=== PATIENT | male | born 1950 | race American Indian/Alaskan Native ===

== ENCOUNTER 2021-11-23 00:37 | Emergency (ER) | payer MEDICARE ==
[2021-11-23] MEDS ORDERED: MORPHINE 4 MG/1 ML INJ IV STA (02:56)
[2021-11-23] MEDS ORDERED: SODIUM CHLORIDE 0.9% 1000 ML 1,000 ML IV ONE (02:56)
[2021-11-23] MEDS ORDERED: ONDANSETRON 4 MG/2 ML INJ IV STA (02:56)
[2021-11-23 03:47] LABS: Basophils # (Auto) 0.1 K/mm3 (0.0-0.1); Basophils % (Auto) 0.9 % (0.0-1.8); Eosinophils # (Auto) 0.1 K/mm3 (0.0-0.4); Eosinophils % (Auto) 1.5 % (0.0-4.3); Hematocrit 29.1 % (35.5-45.6); Hemoglobin 9.3 gm/dl (11.8-15.2); Lymphocytes # (Auto) 0.9 K/mm3 (1.2-5.4); Lymphocytes % (Auto) 12.1 % (13.4-35.0); Mean Corpuscular HGB Conc 32 % (32-34); Mean Corpuscular Volume 85 fl (84-94); Monocytes # (Auto) 0.5 K/mm3 (0.0-0.8); Monocytes % (Auto) 6.5 % (0.0-7.3); Platelet Count 372 K/mm3 (140-440); Red Blood Count 3.44 M/mm3 (3.65-5.03); Red Cell Distribution Width 14.6 % (13.2-15.2)
[2021-11-23 03:57] LABS: Albumin 3.7 g/dL (3.9-5); Calcium 8.7 mg/dL (8.4-10.2)
[2021-11-23] MEDS ORDERED: HYDROmorphone 1 MG/1 ML INJ IV ONE ×3 (04:42→08:42)
[2021-11-23 04:46] LABS: Bilirubin,Urine Negative (Negative); Blood,Urine Negative (Negative); Color,Urine Straw (Yellow); Urobilinogen,Urine < 2.0 mg/dL (<2.0)
--- NOTE | 2021-11-23 04:46 | Emergency Department Report ---
Blank Doc - Documentation Documentation: Patient is 71 years old male with history of hypertension and enlarged prostate. Patient presented to the ER complaining of lower back pain. Patient stated that he was admitted to [facility] 1 week ago and they found that he has an enlarged prostate and asked him to follow-up with urologist. Patient received morphine 4 mg in triage area and when I was doing my medical screening patient stated that he still hurting so I wrote for Dilaudid 1mg. I order CT abdomen and pelvis for the coming physician to follow-up on.
[2021-11-23 04:50] LABS: Mucus,Urine FEW /HPF
--- NOTE | 2021-11-23 05:45 | Cat Scan Report ---
CT ABDOMEN AND PELVIS WITHOUT CONTRAST INDICATION / CLINICAL INFORMATION: ABDOMINAL PAIN. TECHNIQUE: Axial CT images were obtained through the abdomen and pelvis without IV contrast. All CT scans at this location are performed using CT dose reduction for ALARA by means of automated exposure control. COMPARISON: CT of the abdomen and pelvis 02/28/2013. FINDINGS: LOWER CHEST: Dependent right pleural effusion with associated passive atelectasis of the right lower lobe. Expansile lesion of the posterior lateral right eighth rib with sclerotic expansile partially i fredy lesion of the right sixth rib. Partially imaged expansile lesion of the lateral left fifth rib. Multiple probable metastatic lesions of the thoracic spine. Multiple varicosities underlie the anter ior chest wall. LIVER: Noncontrast enhanced liver is grossly unremarkable. GALLBLADDER: No significant abnormality. BILE DUCTS: No significant abnormality. SPLEEN: No significant abnormality. PANCREAS: No significant abnormality. ADRENALS: No significant abnormality. RIGHT KIDNEY / URETER: Moderate to severe hydronephrosis. LEFT KIDNEY / URETER: Moderate to severe hydronephrosis. Additional 2.9 cm left renal cyst is increas ed in size since comparison. No obvious solid masses of the left kidney. Other cysts demonstrated on the comparison study are not well visualized secondary to lack of intravenous contrast. STOMACH / DUODENUM / SMALL BOWEL: No significant abnormality. COLON: Postoperative changes within the cecum. Moderate stool throughout the large bowel. APPENDIX: Absent PERITONEUM: No free air or free fluid are present within the abdomen or pelvis. LYMPH NODES: Enlarged right pelvic lymph nodes measuring up to 3.8 cm short axis and left common jyoti c nodes measuring 4.6 cm short axis are demonstrated. Additional adenopathy versus prostate mass part ially effaces the anterior rectum. This measures approximately 5.3 cm short axis. AORTA / ARTERIES: No significant abnormality. IVC / VEINS: No significant abnormality. URINARY BLADDER: Decompressed by Sethi catheter. Bladder wall appears thickened. Additional moderate bilateral hydroureter demonstrated. REPRODUCTIVE ORGANS: Massive enlargement of the prostate. ADDITIONAL ABDOMINAL/PELVIC FINDINGS: None. SKELETAL SYSTEM: Diffuse osseous metastatic disease demonstrated multiple lesions involving the thora columbar spine, posterior left iliac wing, the left iliac crest. Minimal depression of superior endpl ate L4 demonstrated. Possible central stenosis at L1 as result of metastatic disease not excluded. IMPRESSION: 1. Extensive osseous metastatic disease involving the rib cage, thoracolumbar spine, and pelvis. At L 1, central stenosis as result of metastatic disease is not excluded. 2. Enlarged intrapelvic and retroperitoneal lymph nodes some of which has documented above likely met astatic. 3. Significantly enlarged prostate with thickened bladder wall and bilateral moderate to severe hydro nephrosis compatible with obstructive uropathy. 4. Dependent right pleural effusion without obvious pleural metastatic disease. 5. Interval surgical changes in the region of the cecum. Signer Name: Tristen Womack II, MD Signed: 11/23/2021 5:41 AM Workstation Name: [id number]
--- NOTE | 2021-11-23 07:01 | Emergency Department Report ---
ED Back Pain/Injury HPI - General Chief Complaint: Back Pain/Injury Stated Complaint: BACK PAIN Time Seen by Provider: 11/23/21 06:18 Source: patient, EMS Limitations: No Limitations - History of Present Illness Initial Comments: 71-year-old male with a past medical history of colon cancer, hypertension, and recently diagnosis of an enlarged prostate presents to the hospital complain of lower back pain x1 week. No trauma reported. Pain is 10/10 intensity, worse with movement and palpation. Patient has been bedbound with difficulty ambulating secondary to pain x1 week. Denies weakness to his legs. Patient was admitted to [facility] 1 to 2 weeks ago for urinary retention with hydronephrosis and had a Sethi catheter placed at that time. Since discharge she has seen Dr. Acevedo urologist in [place] and was told that his hydronephrosis had improved and had outpatient lab work including PSA performed at that. Patient was scheduled to receive results today. Decreased p.o. intake reported as 1 week. Baseline creatinine unknown Patient's current medications include Bactrim since November 15 Flomax 0.4 mg Amlodipine 10 mg as per [facility] records creatinine 3.02 on 11/07/21 - Related Data Home Medications Medication Instructions Recorded Confirmed Last Taken Amlodipine Besylate [Norvasc] 10 mg PO QDAY 11/23/21 11/23/21 11/22/21 HYDROcodone/APAP 7.5-325 [[place] 1 each PO Q6HR PRN 11/23/21 11/23/21 Unknown 7.5/325] Sulfamethoxazole/Trimethoprim 1 each PO BID 11/23/21 11/23/21 11/22/21 [Bactrim DS TAB] Tamsulosin [Flomax] 0.4 mg PO QDAY 11/23/21 11/23/21 11/22/21 Allergies Allergy/AdvReac Type Severity Reaction Status Date / Time No Known Allergies Allergy Verified 11/23/21 08:51 ED Review of Systems ROS: Stated complaint: BACK PAIN Other details as noted in HPI Comment: All other systems reviewed and negative ED Past Medical Hx - Past Medical History Previous Medical History?: Yes Hx Hypertension: Yes Hx of Cancer: Yes (COLON) Additional medical history: ENLARGED PROSTATE - Surgical History Past Surgical History?: No - Social History Smoking Status: Former Smoker - Medications Home Medications: Home Medications Medication Instructions Recorded Confirmed Last Taken Type Amlodipine Besylate [Norvasc] 10 mg PO QDAY 11/23/21 11/23/21 11/22/21 History HYDROcodone/APAP 7.5-325 [[place] 1 each PO Q6HR PRN 11/23/21 11/23/21 Unknown History 7.5/325] Sulfamethoxazole/Trimethoprim 1 each PO BID 11/23/21 11/23/21 11/22/21 History [Bactrim DS TAB] Tamsulosin [Flomax] 0.4 mg PO QDAY 11/23/21 11/23/21 11/22/21 History ED Physical Exam - General Limitations: No Limitations - Other Other exam information: General: No acute distress Head: Atraumatic Eyes: normal appearance ENT: Moist mucous membranes Neck: Normal appearance, no midline tenderness Chest: Clear to auscultation bilaterally CV: Regular rate and rhythm Abdomen: Soft, normal bowel sounds, nontender, nondistended, no rebound or guarding : Sethi catheter with urine draining Back: Lumbar back pain/tenderness worse with movement Extremity: Normal inspection, full range of motion Neuro: Alert O x 3, no facial asymmetry, speech clear, no gross motor sensory deficit Psych: Appropriate behavior Skin: No rash ED Course Vital Signs 11/23/21 11/23/21 11/23/21 00:40 03:33 04:15 Temperature 99.1 F 98.9 F Pulse Rate 94 H 93 H Respiratory 16 16 14 Rate Blood Pressure 142/71 Blood Pressure 119/78 [Right] O2 Sat by Pulse 94 89 Oximetry 11/23/21 11/23/21 11/23/21 04:19 04:30 04:46 Temperature Pulse Rate 92 H 90 90 Respiratory 16 15 13 Rate Blood Pressure 132/68 132/64 Blood Pressure [Right] O2 Sat by Pulse 89 97 96 Oximetry 11/23/21 11/23/21 11/23/21 05:00 05:30 05:46 Temperature Pulse Rate 86 90 89 Respiratory 17 19 14 Rate Blood Pressure 115/60 123/59 Blood Pressure [Right] O2 Sat by Pulse 96 97 97 Oximetry 11/23/21 11/23/21 11/23/21 06:00 06:16 06:30 Temperature Pulse Rate 87 93 H 87 Respiratory 16 19 18 Rate Blood Pressure 122/63 122/63 130/61 Blood Pressure [Right] O2 Sat by Pulse 97 97 96 Oximetry 11/23/21 11/23/21 11/23/21 06:46 07:00 07:16 Temperature Pulse Rate 93 H 89 85 Respiratory 20 15 15 Rate Blood Pressure 130/61 132/68 132/68 Blood Pressure [Right] O2 Sat by Pulse 96 96 94 Oximetry 11/23/21 11/23/21 11/23/21 07:30 07:46 08:00 Temperature Pulse Rate 85 85 81 Respiratory 14 15 15 Rate Blood Pressure 116/57 116/57 122/50 Blood Pressure [Right] O2 Sat by Pulse 94 93 95 Oximetry 11/23/21 08:16 Temperature Pulse Rate 80 Respiratory 16 Rate Blood Pressure 122/50 Blood Pressure [Right] O2 Sat by Pulse 95 Oximetry - Reevaluation(s) Reevaluation #1: 11/23/21 10:46 daughter who was at the bedside updated regarding patient status and plan for transfer - Consultations Consultation #1: 11/23/21 06:55 DR Acevedo urologist [place]. I spoke to Dr Ayon irrigation engineer . He agrees for pt to be admitted to [facility]. I will need to contact medicine service for admission 11/23/21 07:58 We were able to get a hold of the medical housekeeper at [facility] until this time. They are on the ER saturation and pending admissions and therefore cannot accept patient due to lack of bed availability 11/23/21 08:04 call placed to [facility], awaiting urology callback, requests for us to call [facility] since they may have access to pt's medical records from [facility] admission 11/23/21 08:07 [facility] is at capacity and can not accept the patient. 11/23/21 08:38 Leni contacted and they are at capacity 11/23/21 10:45 Pt accepted to [facility], by Urologist Dr Barber and ER doctor Micaela ED Medical Decision Making - Lab Data Result diagrams: 11/23/21 03:13 11/23/21 03:13 Lab Results 11/23/21 11/23/21 11/23/21 Range/Units 03:13 03:13 04:20 WBC 7.4 (4.5-11.0) K/mm3 RBC 3.44 L (3.65-5.03) M/mm3 Hgb 9.3 L (11.8-15.2) gm/dl Hct 29.1 L (35.5-45.6) % MCV 85 (84-94) fl MCH 27 L (28-32) pg MCHC 32 (32-34) % RDW 14.6 (13.2-15.2) % Plt Count 372 (140-440) K/mm3 Lymph % (Auto) 12.1 L (13.4-35.0) % Meagher % (Auto) 6.5 (0.0-7.3) % Eos % (Auto) 1.5 (0.0-4.3) % Baso % (Auto) 0.9 (0.0-1.8) % Lymph # (Auto) 0.9 L (1.2-5.4) K/mm3 Meagher # (Auto) 0.5 (0.0-0.8) K/mm3 Eos # (Auto) 0.1 (0.0-0.4) K/mm3 Baso # (Auto) 0.1 (0.0-0.1) K/mm3 Seg Neutrophils % 79.0 H (40.0-70.0) % Seg Neutrophils # 5.8 (1.8-7.7) K/mm3 Sodium 134 L (137-145) mmol/L Potassium 5.2 H (3.6-5.0) mmol/L Chloride 100.3 (98-107) mmol/L Carbon Dioxide 19 L (22-30) mmol/L Anion Gap 20 mmol/L BUN 38 H (9-20) mg/dL Creatinine 3.1 H (0.8-1.3) mg/dL Estimated GFR 24 ml/min BUN/Creatinine Ratio 12 % Glucose 100 (75-100) mg/dL Calcium 8.7 (8.4-10.2) mg/dL Total Bilirubin 0.20 (0.1-1.2) mg/dL AST 15 (5-40) units/L ALT 6 L (7-56) units/L Alkaline Phosphatase 125 (35-129) units/L Total Protein 7.1 (6.3-8.2) g/dL Albumin 3.7 L (3.9-5) g/dL Albumin/Globulin Ratio 1.1 % Urine Color Straw (Yellow) Urine Turbidity Clear (Clear) Urine pH 5.0 (5.0-7.0) Ur Specific [place] 1.010 (1.003-1.030) Urine Protein 30 mg/dl (Negative) mg/dL Urine Glucose (UA) Negative (Negative) mg/dL Urine Ketones Negative (Negative) mg/dL Urine Blood Negative (Negative) Urine Nitrite Neg (Negative) Urine Bilirubin Negative (Negative) Urine Urobilinogen < 2.0 (<2.0) mg/dL Ur Leukocyte Esterase Small (Negative) Urine WBC (Auto) 5.0 (0.0-6.0) /HPF Urine RBC (Auto) 2.0 (0.0-6.0) /HPF U Epithel Cells (Auto) < 1.0 (0-13.0) /HPF Uric Acid Crystals 3+ Urine Mucus Few /HPF Urine Yeast (Budding) 1+ /HPF - Radiology Data Radiology results: report reviewed CT ABDOMEN AND PELVIS WITHOUT CONTRAST INDICATION / CLINICAL INFORMATION: ABDOMINAL PAIN. TECHNIQUE: Axial CT images were obtained through the abdomen and pelvis without IV contrast. All CT scans at this location are performed using CT dose reduction for ALARA by ok ans of automated exposure control. COMPARISON: CT of the abdomen and pelvis 02/28/2013. FINDINGS: LOWER CHEST: Dependent right pleural effusion with associated passive atelectasis of the right lower lobe. Expansile lesion of the posterior lateral right eighth rib with sclerotic expansile partially imaged lesion of the right sixth rib. Partially imaged expansile lesion of the lateral left fifth rib. Multiple probable metastatic lesions of the thoracic spine. Multiple varicosities underlie the anterior chest wall. LIVER: Noncontrast enhanced liver is grossly unremarkable. GALLBLADDER: No significant abnormality. BILE DUCTS: No significant abnormality. SPLEEN: No significant abnormality. PANCREAS: No significant abnormality. ADRENALS: No significant abnormality. RIGHT KIDNEY / URETER: Moderate to severe hydronephrosis. LEFT KIDNEY / URETER: Moderate to severe hydronephrosis. Additional 2.9 cm left renal cyst is increased in size since comparison. No obvious solid masses of the left kidney. Other cysts demonstrated on the comparison study are not well visualized secondary to lack of intravenous contrast. STOMACH / DUODENUM / SMALL BOWEL: No significant abnormality. COLON: Postoperative changes within the cecum. Moderate stool throughout the large bowel. APPENDIX: Absent PERITONEUM: No free air or free fluid are present within the abdomen or pelvis. LYMPH NODES: Enlarged right pelvic lymph nodes measuring up to 3.8 cm short axis and left common iliac nodes measuring 4.6 cm short axis are demonstrated. Additional adenopathy versus prostate mass partially effaces the anterior rectum. This measures approximately 5.3 cm short axis. AORTA / ARTERIES: No significant abnormality. IVC / VEINS: No significant abnormality. URINARY BLADDER: Decompressed by Sethi catheter. Bladder wall appears thickened . Additional moderate bilateral hydroureter demonstrated. REPRODUCTIVE ORGANS: Massive enlargement of the prostate. ADDITIONAL ABDOMINAL/PELVIC FINDINGS: None. SKELETAL SYSTEM: Diffuse osseous metastatic disease demonstrated multiple lesions involving the thoracolumbar spine, posterior left iliac wing, the left iliac crest. Minimal depression of superior endplate L4 demonstrated. Possible central stenosis at L1 as result of metastatic disease not excluded. IMPRESSION: 1. Extensive osseous metastatic disease involving the rib cage, thoracolumbar spine, and pelvis. At L1, central stenosis as result of metastatic disease is not excluded. 2. Enlarged intrapelvic and retroperitoneal lymph nodes some of which has documented above likely metastatic. 3. Significantly enlarged prostate with thickened bladder wall and bilateral moderate to severe hydronephrosis compatible with obstructive uropathy. 4. Dependent right pleural effusion without obvious pleural metastatic disease. 5. Interval surgical changes in the region of the cecum. - Medical Decision Making 71-year-old male presents to the hospital with moderate to severe hydronephrosis despite catheter placement and CT evidence of osseous metastasis likely from metastatic prostate cancer and right pleural effusion secondary to same. Patient does not have any lower extremity weakness but endorses lower back pain. Requiring every 2 hour Dilaudid doses. After multiple attempts patient has been accepted to [facility] ED for urology and heme consultation and possible IR intervention with placement of nephrostomy tubes. Patient and daughter updated regarding status and plans for transfer Critical Care Time: Yes Critical care time in (mins) excluding proc time.: 45 Critical care attestation.: If time is entered above; I have spent that time in minutes in the direct care of this critically ill patient, excluding procedure time. Critical Care Time: 45 Minutes of critical care time excluding procedures were used in the care of the patient. . I discussed treatment plan with the nursing team members. I reviewed electronic record. I spoke with family to obtain medical history. Patient required multiple interventions and reassessments. Patient required multiple calls and consultations and attempt to transfer patient ED Disposition Clinical Impression: Bone metastases, Enlarged prostate, Obstructive uropathy, Pleural metastasis, Bilateral hydronephrosis, Recurrent right pleural effusion, Intractable back pain Disposition: 02 SHORT TERM HOSPITAL Is pt being admited?: No Condition: Stable Time of Disposition: 10:55
[2021-11-23] MEDS ORDERED: HYDROmorphone 1 MG/1 ML INJ IV PRN (10:55)
[2021-11-23 11:54] VITALS: BP 111/58
== END 2021-11-23 12:00 | disposition short-term general hospital (02) ==
LOC: ED 00:37
DX: C79.51 Secondary malignant neoplasm of bone (principal); C18.9 Malignant neoplasm of colon, unspecified; N40.0 Benign prostatic hyperplasia without lower urinary tract symptoms; N13.30 Unspecified hydronephrosis; J90 Pleural effusion, not elsewhere classified; M54.9 Dorsalgia, unspecified
CPT/HCPCS: 36415; 74176; 80053; 81001; 85025; 96361; 96374; 96375; 96376; 99285; J1170; J2270; J2405; J7030; Q0162